=== PATIENT | female | born 1945 | race Caucasian/White ===

== ENCOUNTER 2016-05-04 06:36 | Inpatient (IN) | payer MEDICARE, BC ==
[2016-04-23 10:34] LABS: BASOPHILS 0.3 %; BASOPHILS ABSOLUTE 0.02 10/3/uL (0.0-0.16); EOSINOPHILS 3.9 %; EOSINOPHILS ABSOLUTE 0.28 10/3/uL (0.0-0.53); HEMATOCRIT 39.7 % (36.0-48.0); HEMOGLOBIN 13.1 g/dL (12.0-16.0); IMMATURE GRANULOCYTES 0.1 %; IMMATURE GRANULOCYTES ABSOLUTE 0.01 10/3/uL (0.0-0.11); LYMPHOCYTES 36.4 %; LYMPHOCYTES ABSOLUTE 2.59 10/3/uL (0.67-4.30); MEAN CORPUSCULAR HEMOGLOB 28.4 pg (26.0-34.0); MEAN CORPUSCULAR VOLUME 86.1 fL (80-100); MEAN PLATELET VOLUME 10.1 fL (9.2-13.0); MONOCYTES 5.9 %; MONOCYTES ABSOLUTE 0.42 10/3/uL (0.21-1.20); NEUTROPHILS 53.4 %; NEUTROPHILS ABSOLUTE 3.79 10/3/uL (2.02-8.40); PLATELET COUNT 244 10/3/uL (150-400); RBC DISTRIBUTION WIDTH 13.3 % (12.0-16.0); RED CELL COUNT 4.61 10/6/uL (4.0-5.6); WHITE BLOOD CELLS 7.1 10/3/uL (4.5-10.5)
[2016-04-23 10:35] LABS: PARTIAL THROMBO TIME 35.4 SEC (22.5-37.2); PROTIME (NOT ORD) 13.1 SEC (12.0-14.5)
[2016-04-23 10:36] LABS: MANUAL DIFF NO %
[2016-04-23 11:39] LABS: A/G RATIO 1.3 (0.7-1.9); ALBUMIN 4.3 G/DL (3.5-5.0); ALKALINE PHOSPHATASE 59 U/L (45-117); BUN (BLOOD UREA NITROGEN) 23 MG/DL (6-23); CALCIUM, SERUM 9.3 MG/DL (8.5-10.4); CHLORIDE, SERUM 101 MMOL/L (96-112); CO2 (CARBON DIOXIDE) 30 MMOL/L (24-34); CREATININE 0.91 MG/DL (0.55-1.02); GFR AFRICAN AMERICAN 74 ML/MIN (>=60); GFR NON AFRICAN AMERICAN 63 ML/MIN (>=60); GLOBULIN 3.3 G/DL (2.5-4.1); GLUCOSE, SERUM 212 MG/DL (60-99); POTASSIUM, SERUM 4.4 MMOL/L (3.5-5.3); SGOT(AST) 19 U/L (5-40); SGPT(ALT) 25 U/L (5-65); SODIUM, SERUM 140 MMOL/L (135-148); TOTAL BILIRUBIN 0.6 MG/DL (0-1.2); TOTAL PROTEIN 7.6 G/DL (6.0-8.5)
[2016-04-23 12:33] LABS: ASCORBIC ACID (UR NOT ORDER) NEG (NEG); BILIRUBIN, URINE NEGATIVE (NEG); KETONE, URINE NEGATIVE (NEG); LEUKOCYTE ESTERASE(NOT OR NEG (NEG); WBC (NOT ORDERED) (RFLEX) < 1 (0-5)
--- NOTE | ~2016-05-04 | OP ---
Record Of Operation [facility] [address] [place]. [address] NAME: HEAD,TOM CASTRO : 45 STATUS : ADM IN PAT#: [id number] AGE: 71 ADM/REG DATE : 05/04/16 MR#: [id number] REPORT SERV DATE: 05/04/16 DICTATED BY: NEHAL GARCIA DATE: 05/04/16 REPORT STATUS : Draft TRANSCRIBED BY: MODL DATE: 05/04/16 DATE OF PROCEDURE: 05/04/2016 PREOPERATIVE DIAGNOSIS: Left knee arthritis. POSTOPERATIVE DIAGNOSIS: Left knee arthritis. PROCEDURE PERFORMED: Left total knee arthroplasty. SURGEON: Nehal Garcia M.D. CIRCUIT JUDGE: Tony Walker. ANESTHESIA: Per anesthetic record. PROCEDURE IN DETAIL: The patient is clearly identified and after obtaining informed consent is brought to the operating room at [facility] where anesthesia is induced uneventfully with excellent anesthetic effect. Subsequently, the affected extremity is prepped and draped in the usual manner and after an appropriate time-out procedure is performed, via an anterior approach, the skin is divided, fascial planes are elevated, paramedial approach to the knee is made. The structures themselves are elevated, excised, and debrided were appropriate, whereupon the patella is carefully everted, calipered, and planed and with the size and type being reproduced with the appropriate-size patella, trialing is performed successfully. At this point, the patella is then carefully subluxed laterally, the knee is flexed, osteophytes around the distal femur are removed, followed by the ACL being divided. The femoral canal is entered and vented, at which point with the intramedullary guide being utilized, the distal femoral cut is made. At this point, the tibia is carefully subluxed anteriorly. The surrounding soft tissues to the tibia are protected with Hohmann retractors, at which point the extramedullary guide is utilized to perform the proximal tibial cut and after cleansing these tissues, the spacer block is utilized in extension to confirm excellent extension, stability, and alignment. The guiding pins are then all carefully removed and the knee is then flexed. The femur is sized, whereupon the anterior, posterior, chamfer, and box cuts are made appropriately. The proximal tibia then is assessed. Osteophytes and surrounding soft tissues are removed and debrided were appropriate. Posterior osteophytes are removed as well. The menisci are excised and thus concluding trialings performed successfully. The proximal tibia then is carefully prepared utilizing proper cement technique. The permanent implants have been carefully placed into position uneventfully where upon copious irrigations performed, the permanent tibial implants applied and thus concluded. The joint was then copiously irrigated, at which point it is closed carefully in layers including Vicryl and james for the skin, at which point Aquacel sterile dressing is applied. The patient is allowed to awaken and is transferred to the bed and subsequently to the recovery room in stable condition having tolerated the procedure well. ESTIMATED BLOOD LOSS: 50 mL. Record Of Operation [facility] [address] [place]. [address] NAME: HEAD,TOM CASTRO : 45 STATUS : ADM IN PAT#: [id number] AGE: 71 ADM/REG DATE : 05/04/16 MR#: [id number] REPORT SERV DATE: 05/04/16 DICTATED BY: NEHAL GARCIA DATE: 05/04/16 REPORT STATUS : Draft TRANSCRIBED BY: KAYLEE DATE: 05/04/16 FLUIDS: 500 mL. TOURNIQUET TIME: 33 minutes. PATHOLOGY: Sent specimen. MICROBIOLOGY: None. COMPLICATIONS: None. SPONGE AND NEEDLE COUNTS: Reportedly correct. ANTIBIOTICS: Administered appropriately preoperatively and ordered to be discontinued within 23 hours. IMPLANTS: Attune knee by DePuy, femur 7, tibia 5, patella 38, polyethylene 7/8. RONNIE/KAYLEE Nehal Garcia M.D. / [id number] CC: Nehal Garcia M.D.
[~2016-05-04 06:36] MED LIST: AMARYL4 PO; ASAB PO; FORTAMET1000 MG PO; FORTAMET500 MG PO; ZESTORETIC1 TA1 PO; ZOCOR40 PO
[2016-05-05 06:40] LABS: HEMATOCRIT 30.9 % (36.0-48.0); HEMOGLOBIN 10.1 g/dL (12.0-16.0)
[2016-05-05 06:47] LABS: INTERNATIONAL NORMAL RATI 1.1 UNITS (-); PROTIME (NOT ORD) 14.3 SEC (12.0-14.5)
[2016-05-05 06:51] LABS: CHLORIDE, SERUM 102 MMOL/L (96-112); CO2 (CARBON DIOXIDE) 29 MMOL/L (24-34); CREATININE 0.83 MG/DL (0.55-1.02); GFR AFRICAN AMERICAN 82 ML/MIN (>=60); GFR NON AFRICAN AMERICAN 71 ML/MIN (>=60); GLUCOSE, SERUM 208 MG/DL (60-99); POTASSIUM, SERUM 4.4 MMOL/L (3.5-5.3); SODIUM, SERUM 138 MMOL/L (135-148)
[2016-05-05 06:54] LABS: BUN (BLOOD UREA NITROGEN) 18 MG/DL (6-23)
[2016-05-06 04:44] LABS: HEMATOCRIT 29.8 % (36.0-48.0); HEMOGLOBIN 9.9 g/dL (12.0-16.0)
[2016-05-06 04:54] LABS: INTERNATIONAL NORMAL RATI 1.4 UNITS (-)
[2016-05-06 05:02] LABS: PROTIME (NOT ORD) 17.3 SEC (12.0-14.5)
[2016-05-06] MEDS ORDERED: ZOFRAN4 PO ×2 (10:41→10:42)
[2016-05-06] MEDS ORDERED: OXYCOD PO (10:42)
[2016-05-06] MEDS ORDERED: C5 PO (10:42)
== END 2016-05-06 16:41 | disposition home or self-care (01) | DRG 470 ==
LOC: SDC/OF 06:36 → PACU 10:44 → 3JRC 11:53
PROVIDERS: Orthopaedic Surgery
PROC: 3E0T3CZ (ICD-10-PCS; 2016-05-04)
PROC: 0SRD0J9 Replacement of Left Knee Joint with Synthetic Substitute, Cemented, Open Approach (ICD-10-PCS; principal; 2016-05-04 07:45)
DX: M17.12 Unilateral primary osteoarthritis, left knee (principal); E11.9 Type 2 diabetes mellitus without complications; I10 Essential (primary) hypertension; E78.5 Hyperlipidemia, unspecified; E66.9 Obesity, unspecified; Z68.36 Body mass index [BMI] 36.0-36.9, adult; Z87.442 Personal history of urinary calculi
CPT/HCPCS: 36415; 71020; 80048; 80053; 81001; 82962; 85014; 85018; 85025; 85610; 85730; 86850; 86900; 86901; 87641; 88305; 88311; 93005; 97110-GP; 97116-GP; 97150-GP; 97162-GP; 97165-GO; A9270-GY; C1776; J0690; J1170; J1885; J2250; J2405; J2795; J3010